=== PATIENT | male | born 1945 | race Hispanic/Latino ===

== ENCOUNTER 2018-02-16 15:31 | Emergency (ER) | payer OTHER, SELFPAY ==
--- NOTE | 2018-02-16 17:39 | RAD REPORT ---
EXAM DESCRIPTION: RAD - Forearm Right - 02/16/2018 5:25 pm CLINICAL HISTORY: Pain and swelling COMPARISON: None. FINDINGS: Arthritic changes are present about the elbow and wrist. No fracture, dislocation or aggre ssive marrow lesion. Soft tissue swelling is seen about the the medial aspect of the forearm. No radi opaque foreign body.
[2018-02-16 17:44] LABS: Absolute Lymphocytes (CBC) 1.2 K/uL (0.7-4.9); Absolute Monocytes 0.8 K/uL (0.1-1.3); Absolute Neutrophil 7.7 K/uL (1.8-8.0); Basophils % 0.6 % (0-1.3); Eosinophils % 3.3 % (0-4.4); Hematocrit 31.9 % (39.6-49.0); Lymphocytes % 11.9 % (15.3-44.8); MCH 32.3 pg (27.0-35.0); MCV 96.3 fL (80-100); MPV 10.3 fL (7.6-11.3); RBC Red Blood Cell Count 3.31 M/uL (4.33-5.43)
[2018-02-16 17:49] LABS: Protime INR 1.52
[2018-02-16 17:54] LABS: Potassium 5.4 mEq/L (3.6-5.0)
[2018-02-16 17:57] LABS: Albumin 3.7 g/dL (3.2-5.5); Bilirubin Total 0.7 mg/dL (0.3-1.2); Protein, Total 6.9 g/dL (6.0-8.3)
[2018-02-16 18:18] LABS: Urine Blood NEGATIVE (NEG); Urine Glucose NEGATIVE (NEG); Urine Protein NEGATIVE (NEG)
[2018-02-16] MEDS ORDERED: SOD POLYSTYREN SUL 15 GM/60 ML UCUP ONE (19:02)
[2018-02-16] MEDS ORDERED: VANCOMYCIN 1 GM/VIAL ONE (19:08)
[2018-02-16] MEDS ORDERED: NA CHLORIDE 0.9% 250 ML ONE (19:11)
--- NOTE | 2018-02-16 20:54 | ER ---
Nurse's Notes [facility] Name: Ventura Mitchell Age: 72 yrs Sex: Male : 1945 Arrival Date: 02/16/2018 Time: 15:32 Bed 20 Private MD: Diagnosis: Cellulitis of right upper limb-right forearm;Hyperkalemia Presentation: 02/16 15:46 Presenting complaint: Patient states: Redness and inflammation to right forearm that aj started 1 month ago. Patient was told by home health nurse to come to ER for evaluation. Transition of care: patient was not received from another setting of care. Onset of symptoms was January 15, 2018. Initial Sepsis Screen: Does the patient meet any 2 criteria? No. Patient's initial sepsis screen is negative. Does the patient have a suspected source of infection? No. Patient's initial sepsis screen is negative. Care prior to arrival: None. 15:46 Method Of Arrival: Wheelchair aj 15:46 Acuity: PETER 3 aj Triage Assessment: 15:51 General: Appears in no apparent distress. comfortable, Behavior is calm, cooperative, aj appropriate for age. Pain: Complains of pain in dorsal aspect of right forearm, right wrist and right hand. Neuro: Level of Consciousness is awake, alert, obeys commands, Oriented to person, place, time, situation, Appropriate for age. Respiratory: Airway is patent Respiratory effort is even, unlabored, Respiratory pattern is regular, symmetrical. Derm: Skin is intact, is healthy with good turgor, Skin is pink, warm \T\ dry. normal. Musculoskeletal: Reports pain in dorsal aspect of right forearm, right wrist and right hand. Historical: - Allergies: 15:48 No Known Allergies; aj - Home Meds: 15:51 terbinafine HCl 250 mg oral tab 1 tab once daily [Active]; Warfarin 8 mg Oral once aj daily [Active]; tramadol 50 mg Oral tab 1 tab every 6 hours [Active]; atorvastatin 80 mg oral tab 1 tab once daily [Active]; lisinopril 20 mg Oral tab 2 tabs once daily [Active]; gabapentin 100 mg oral cap 3 caps 3 times per day [Active]; hydrochlorothiazide 25 mg Oral tab 1 tab once daily [Active]; - PMHx: 15:48 Hypertension; Diabetes - IDDM; CHF; aj - Immunization history:: Adult Immunizations up to date. - Social history:: Smoking status: Patient uses tobacco products, smokes one pack cigarettes per day. Screenin:10 Abuse screen: Denies threats or abuse. Nutritional screening: No deficits noted. rb1 Tuberculosis screening: No symptoms or risk factors identified. Fall Risk None identified. Assessment: 16:10 General: Appears in no apparent distress. comfortable, Behavior is calm, cooperative. rb1 Neuro: Level of Consciousness is awake, alert, obeys commands, Oriented to person, place, time, situation. Cardiovascular: Capillary refill < 3 seconds is brisk in bilateral fingers. Respiratory: Airway is patent Respiratory effort is even, unlabored, Respiratory pattern is regular, symmetrical. GI: No signs and/or symptoms were reported involving the gastrointestinal system. : No signs and/or symptoms were reported regarding the genitourinary system. Derm: Skin is pink, warm \T\ dry. Musculoskeletal: Swelling present in right arm. 16:10 Derm: discoloration and swelling is noted to all five toes on the left foot. rb1 16:10 Pain: Pain: Complains of pain in right arm Pain currently is 5 out of 10 on a pain rb1 scale. 17:08 Reassessment: Patient appears in no apparent distress at this time. No changes from rb1 previously documented assessment. 18:06 Reassessment: Patient appears in no apparent distress at this time. Patient and/or rb1 family updated on plan of care and expected duration. Pain level reassessed. Patient is alert, oriented x 3, equal unlabored respirations, skin warm/dry/pink. Family at bedside. 19:19 Reassessment: Patient appears in no apparent distress at this time. Patient and/or mg2 family updated on plan of care and expected duration. Pain level reassessed. Patient is alert, oriented x 3, equal unlabored respirations, skin warm/dry/pink. 20:32 Reassessment: Patient appears in no apparent distress at this time. Patient and/or mg2 family updated on plan of care and expected duration. Pain level reassessed. Patient is alert, oriented x 3, equal unlabored respirations, skin warm/dry/pink. patient opted to go AMA. still onging IV antibiotics. Vital Signs: 15:51 BP 133 / 60; Pulse 56; Resp 19; Temp 97.6; Pulse Ox 98% on R/A; Weight 81.65 kg; Height aj 5 ft. 11 in. (180.34 cm); Pain 8/10; 16:15 BP 138 / 62; Pulse 54; Resp 18; Pulse Ox 99% on R/A; rb1 17:12 BP 135 / 63; Pulse 57; Resp 19; Pulse Ox 100% on R/A; rb1 18:10 BP 132 / 59; Pulse 61; Resp 17; Pulse Ox 98% on R/A; rb1 19:09 BP 158 / 91; Pulse 61; Resp 18; Pulse Ox 97% on R/A; mg2 19:53 BP 177 / 55; Pulse 58; Resp 18; Pulse Ox 96% ; mg2 21:36 BP 168 / 63; Pulse 61; Resp 18; Pulse Ox 95% ; Pain 0/10; mg2 15:51 Body Mass Index 25.10 (81.65 kg, 180.34 cm) aj ED Course: 15:32 Patient arrived in ED. sb2 15:47 Triage completed. aj 15:51 Arm band placed on left wrist. Patient placed in waiting room, Patient notified of wait aj time. 16:10 Patient has correct armband on for positive identification. Bed in low position. Call rb1 light in reach. Side rails up X 1. Pulse ox on. NIBP on. 16:19 Bianca Jin RN is Primary Nurse. rb1 16:20 Soy Dugan NP is PHCP. pm1 16:20 Ashu Redmond MD is Attending Physician. pm1 16:53 Missed attempt(s): 22 gauge in left antecubital area. Bleeding controlled, band aid dh3 applied, catheter tip intact. 17:05 Missed attempt(s): 24 gauge in left hand. Bleeding controlled, band aid applied, ss catheter tip intact. 17:18 Inserted saline lock: 24 gauge in left antecubital area, using aseptic technique. Blood ss collected. 17:24 X-ray completed. Portable x-ray completed in exam room. Patient tolerated procedure la2 well. 17:26 Forearm Right XRAY In Process Unspecified. EDMS 17:53 Urine collected: urinal,clear. dh3 18:58 Report given to RADHA Florian. rb1 19:08 EKG done, by ED staff, reviewed by Soy Dugan NP. mg2 19:38 IV discontinued, intact, bleeding controlled, Pressure dressing applied, left IV AC mg2 infiltrated. IV D/C and new IV inserted. 19:58 No provider procedures requiring assistance completed. mg2 21:56 IV discontinued, bleeding controlled, No redness/swelling at site. Pressure dressing mg2 applied. Administered Medications: 19:00 Drug: Kayexalate 30 grams Route: PO; rb1 20:26 Follow up: Response: No adverse reaction mg2 19:18 Drug: vancoMYCIN 1 grams Route: IVPB; Infused Over: 2 hrs; Site: left antecubital; mg2 21:50 Follow up: IV Status: Completed infusion mg2 21:57 Follow up: Response: No adverse reaction mg2 Outcome: 21:55 AMA AMA form signed mg2 21:55 Condition: stable 21:55 Discharge instructions given to patient, family, Instructed on discharge instructions, follow up and referral plans. Demonstrated understanding of instructions, follow-up care, medications, wound care, Prescriptions given X 1. 21:57 Patient left the ED. mg2 Signatures: Dispatcher [employer] EDMS Onelia Schumacher RN RN aj Smirch, Shelby, RN RN Bianca Jin RN RN rb1 Soy Dugan NP BIOINFORMATICS COMPUTER SCIENTIST pm1 Pema Orona 3 Allie Grewal2 Vangie Boles 2 Pablo Acosta RN RN mg2 Corrections: (The following items were deleted from the chart) 15:52 15:51 Arm band placed on left wrist. Patient placed in an exam room, dea 19:26 19:24 Pain: [place] [id number] 19:39 19:38 IV discontinued, mg2 mg2
--- NOTE | 2018-02-16 20:54 | EDPHYS ---
Physician Documentation [facility] Name: Ventura Mitchell Age: 72 yrs Sex: Male : 1945 Arrival Date: 02/16/2018 Time: 15:32 Bed 20 Private MD: ED Physician Ashu Redmond HPI: 02/16 17:00 This 72 yrs old Male presents to ER via Wheelchair with complaints of Right pm1 Arm Cellulitis. 17:00 The patient or guardian complains of swelling, Redness . The complaints affect the pm1 dorsal aspect of right forearm. Context: The problem was sustained at home, resulted from unknown cause. Onset: The symptoms/episode began/occurred yesterday. Treatment prior to arrival includes: no previous treatment. Modifying factors: The symptoms are alleviated by nothing. the symptoms are aggravated by nothing. Associated signs and symptoms: Pertinent negatives: decreased range of motion, deformity, fever, numbness, tingling. Severity of symptoms: in the emergency department the symptoms are unchanged. The patient has not recently seen a physician. Patient was seen by home health nurse today for chronic left foot wounds. She recommended that the patient get evaluated in the ER for the redness present to his right forearm. He has had swelling to his right forearm and hand for 1 month but the redness started yesterday. Historical: - Allergies: 15:48 No Known Allergies; aj - Home Meds: 15:51 terbinafine HCl 250 mg oral tab 1 tab once daily [Active]; Warfarin 8 mg Oral once aj daily [Active]; tramadol 50 mg Oral tab 1 tab every 6 hours [Active]; atorvastatin 80 mg oral tab 1 tab once daily [Active]; lisinopril 20 mg Oral tab 2 tabs once daily [Active]; gabapentin 100 mg oral cap 3 caps 3 times per day [Active]; hydrochlorothiazide 25 mg Oral tab 1 tab once daily [Active]; - PMHx: 15:48 Hypertension; Diabetes - IDDM; CHF; aj - Immunization history:: Adult Immunizations up to date. - Social history:: Smoking status: Patient uses tobacco products, smokes one pack cigarettes per day. ROS: 17:00 Constitutional: Negative for fever, chills, and weight loss, Eyes: Negative for injury, pm1 pain, redness, and discharge, ENT: Negative for injury, pain, and discharge, Neck: Negative for injury, pain, and swelling, Cardiovascular: Negative for chest pain, palpitations, and edema, Respiratory: Negative for shortness of breath, cough, wheezing, and pleuritic chest pain, Abdomen/GI: Negative for abdominal pain, nausea, vomiting, diarrhea, and constipation, Back: Negative for injury and pain, : Negative for injury, bleeding, discharge, and swelling. 17:00 MS/extremity: Positive for swelling, of the dorsal aspect of right forearm and right hand, Negative for injury or acute deformity, decreased range of motion, paresthesias, tingling. 17:00 Skin: Positive for swelling, redness to dorsal aspect of right forearm. Exam: 17:00 Constitutional: This is a well developed, well nourished patient who is awake, alert, pm1 and in no acute distress. Head/Face: Normocephalic, atraumatic. Neck: Trachea midline, no thyromegaly or masses palpated, and no cervical lymphadenopathy. Supple, full range of motion without nuchal rigidity, or vertebral point tenderness. No Meningismus. Chest/axilla: Normal chest wall appearance and motion. Nontender with no deformity. No lesions are appreciated. Cardiovascular: Regular rate and rhythm with a normal S1 and S2. No gallops, murmurs, or rubs. Normal PMI, no JVD. No pulse deficits. Respiratory: Lungs have equal breath sounds bilaterally, clear to auscultation and percussion. No rales, rhonchi or wheezes noted. No increased work of breathing, no retractions or nasal flaring. Abdomen/GI: Soft, non-tender, with normal bowel sounds. No distension or tympany. No guarding or rebound. No evidence of tenderness throughout. Back: No spinal tenderness. No costovertebral tenderness. Full range of motion. 17:00 Skin: Appearance: cellulitis, that is moderate, on the dorsal aspect of right forearm. 17:00 Neuro: Orientation: is normal, Mentation: is normal, Motor: moves all fours, Sensation: is normal, no obvious gross deficits. Vital Signs: 15:51 BP 133 / 60; Pulse 56; Resp 19; Temp 97.6; Pulse Ox 98% on R/A; Weight 81.65 kg; Height aj 5 ft. 11 in. (180.34 cm); Pain 8/10; 16:15 BP 138 / 62; Pulse 54; Resp 18; Pulse Ox 99% on R/A; rb1 17:12 BP 135 / 63; Pulse 57; Resp 19; Pulse Ox 100% on R/A; rb1 18:10 BP 132 / 59; Pulse 61; Resp 17; Pulse Ox 98% on R/A; rb1 19:09 BP 158 / 91; Pulse 61; Resp 18; Pulse Ox 97% on R/A; mg2 19:53 BP 177 / 55; Pulse 58; Resp 18; Pulse Ox 96% ; mg2 21:36 BP 168 / 63; Pulse 61; Resp 18; Pulse Ox 95% ; Pain 0/10; mg2 15:51 Body Mass Index 25.10 (81.65 kg, 180.34 cm) aj MDM: 16:20 Patient medically screened. pm1 20:47 Data reviewed: vital signs. Data interpreted: Pulse oximetry: on room air is 96 %. pm1 Interpretation: normal. 20:48 Refusal of service: The patient/guardian displays adequate decision making capability pm1 and despite a detailed discussion of alternatives, benefits, risks, and consequences refuses: Admission to the hospital for further work-up and treatment, Patient wants to go home because he has spent a month in the hospital recently. Patient wants to go home after infusion of IV antibiotics. present at bedside and supports his decision. 20:49 ED course: Will discharge patient home with MRSA coverage with least drug interaction pm1 with warfarin. 02/16 16:33 Order name: CMP; Complete Time: 18:07 pm1 02/16 16:33 Order name: Blood Culture Adult (2) pm1 02/16 16:33 Order name: CBC with Diff; Complete Time: 17:45 pm1 02/16 16:33 Order name: Lactate; Complete Time: 17:54 pm1 02/16 16:33 Order name: Procalcitonin; Complete Time: 18:29 pm1 02/16 16:33 Order name: PT-INR; Complete Time: 17:54 pm1 02/16 16:33 Order name: Ptt, Activated; Complete Time: 17:54 pm1 02/16 16:33 Order name: IV Saline Lock; Complete Time: 17:26 pm1 02/16 16:49 Order name: Forearm Right XRAY; Complete Time: 17:45 pm1 02/16 16:49 Order name: Urine Dipstick-Ancillary (obtain specimen); Complete Time: 17:54 pm1 02/16 17:49 Order name: Urine Dipstick--Ancillary (enter results) eb 02/16 18:55 Order name: EKG; Complete Time: 18:55 pm1 02/16 18:55 Order name: EKG - Nurse/Tech; Complete Time: 19:06 pm1 Administered Medications: 19:00 Drug: Kayexalate 30 grams Route: PO; rb1 20:26 Follow up: Response: No adverse reaction mg2 19:18 Drug: vancoMYCIN 1 grams Route: IVPB; Infused Over: 2 hrs; Site: left antecubital; mg2 21:50 Follow up: IV Status: Completed infusion mg2 21:57 Follow up: Response: No adverse reaction mg2 Disposition: 02/17 07:30 Co-signature as Attending Physician, Ashu Redmond MD. rn Disposition: 02/16/18 20:54 Patient has left against medical advice. Impression: Cellulitis of right upper limb - right forearm, Hyperkalemia. - Patients states they are going to Home. - Condition is Undetermined. - Discharge Instructions: Cellulitis, Hyperkalemia. - Prescriptions for Doxycycline Hyclate 100 mg Oral Tablet - take 1 tablet by ORAL route every 12 hours; 20 tablet. Follow up: Emergency Department; When: As needed; Reason: Worsening of condition. Follow up: Private Physician; When: 2 - 3 days; Reason: Recheck today's complaints, Continuance of care, Re-evaluation by your physician. - Problem is new. - Symptoms have improved. Signatures: Dispatcher [employer] Onelia Sherman RN RN aj Nieto, Roman, MD MD rn Barber, Rebecca, RN RN rb1 Soy Dugan, ASHLEE MARKETING OPERATIONS CONSULTANT pm1 Pablo Acosta RN RN mg2 Corrections: (The following items were deleted from the chart) 02/16 20:57 20:54 02/16/2018 20:54 Patients has left against medical advice. Impression: Cellulitis pm1 of right upper limb - right forearm. Patient states they are going to Home. Condition is Undetermined. Follow up: Emergency Department; When: As needed; Reason: Worsening of condition. Follow up: Private Physician; When: 2 - 3 days; Reason: Recheck today's complaints, Continuance of care, Re-evaluation by your physician. Problem is new. Symptoms have improved. pm1 21:57 20:57 02/16/2018 20:54 Patients has left against medical advice. Impression: Cellulitis mg2 of right upper limb - right forearm; Hyperkalemia. Patient states they are going to Home. Condition is Undetermined. Discharge Instructions: Cellulitis. Prescriptions for Doxycycline Hyclate 100 mg Oral Tablet - take 1 tablet by ORAL route every 12 hours; 20 tabletFollow up: Emergency Department; When: As needed; Reason: Worsening of condition. Follow up: Private Physician; When: 2 - 3 days; Reason: Recheck today's complaints, Continuance of care, Re-evaluation by your physician. Problem is new. Symptoms have improved. pm1
[2018-02-16 22:01] VITALS: TEMP 97.6
[2018-02-16 22:08] VITALS: BP 168/63; O2SAT 95
--- NOTE | 2018-02-17 06:55 | EKG ---
Test Date: 2018-02-16 Test Time: 19:03:17 Human Resource Advisor: MEASUREMENT RESULTS: Intervals: Rate: 61 ME: 138 QRSD: 174 QT: 486 QTc: 489 [place]: P: 65 ME: 138 QRS: 69 T: 51 INTERPRETIVE STATEMENTS: Normal sinus rhythm Right bundle branch block Inferior infarct, age undetermined Abnormal ECG Compared to ECG 12/08/2017 07:02:59 Myocardial infarct finding now present Atrial fibrillation no longer present Ventricular premature complex(es) no longer present Aberrant conduction of supraventricular beat(s) no longer present Electronically Signed On 02-17-18 06:53:44 CDT by Rickey Lucio
== END 2018-02-16 21:57 | disposition left against medical advice (07) ==
LOC: ER 15:31
DX: L03.113 Cellulitis of right upper limb (principal); E87.5 Hyperkalemia; I10 Essential (primary) hypertension; E11.9 Type 2 diabetes mellitus without complications; I50.9 Heart failure, unspecified; F17.210 Nicotine dependence, cigarettes, uncomplicated; Z79.01 Long term (current) use of anticoagulants
CPT/HCPCS: 36415; 80053; 81003; 83605; 84145; 85025; 85610; 85730; 87040; 87077; 87186; 87205; 93005; 96365; 96366; 99284

== ENCOUNTER 2019-11-04 12:07 | Emergency (ER) | payer OTHER ==
--- OUTSIDE RECORDS SUMMARY | 2019-11-04 12:09 | XMS REPORT ---
:1945 [facility] [address] [place] [address] Care Team Providers Name Role Phone Unavailable Unavailable Unavailable Problems This patient has no known problems. Allergies, Adverse Reactions, Alerts This patient has no known allergies or adverse reactions. Medications This patient has no known medications.
[2019-11-04] MEDS ORDERED: MIDAZOLAM HCL 2 MG/2 ML INJ ONE (12:21)
[2019-11-04] MEDS ORDERED: NA CHLORIDE 0.9% 1,000 ML ONE (12:21)
[2019-11-04] MEDS ORDERED: AMIODARONE HCL 150 MG/3 ML INJ IV ONE (12:26)
[2019-11-04] MEDS ORDERED: FENTANYL CITR 100 MCG/2 ML ONE (12:26)
[2019-11-04] MEDS ORDERED: MAGNESIUM SULFATE 1 gm IVPB 1 GM/100 ML BAG IV ONE (12:33)
--- NOTE | 2019-11-04 12:58 | RAD REPORT ---
EXAM DESCRIPTION: RAD - Chest Single View - 11/04/2019 12:51 pm CLINICAL HISTORY: DYSPNEA COMPARISON: Chest Single View dated 12/08/2017 TECHNIQUE: AP portable chest image was obtained 11/04/2019 12:51 pm . FINDINGS: Left lower lung field is cut off the field of view. Resuscitation paddles overlie the ches t. No peripheral mass consolidation. Interstitial markings are prominent but not substantially differ ent from comparison. Central vasculature is prominent. Mild cardiomegaly is present similar or less p rominent than comparison. No measurable pleural effusion and no pneumothorax. No acute bony abnormali ty seen. No acute aortic findings suspected. IMPRESSION: Mild failure or volume overload pattern less prominent than seen November 2017.
[2019-11-04 13:02] LABS: Protime INR 1.17
--- NOTE | 2019-11-04 13:58 | EKG ---
Test Date: 2019-11-04 Test Time: 12:18:12 Recording Clerk: VICTORIANO MEASUREMENT RESULTS: Intervals: Rate: 193 [place]: QRSD: 202 QT: 320 QTc: 573 [place]: P: [place]: QRS: -41 T: 180 INTERPRETIVE STATEMENTS: Ventricular tachycardia Abnormal ECG Compared to ECG 02/16/2018 19:03:17 Ventricular tachycardia now present Sinus rhythm no longer present Electronically Signed On 11-04-19 13:57:20 DRAFTER (CAD) ELECTRICAL by Flo Pelayo
[2019-11-04 14:24] LABS: Absolute Lymphocytes (CBC) 0.8 K/uL (0.7-4.9); Basophils % 0.9 % (0-1.3); Hematocrit 41.7 % (39.6-49.0); Lymphocytes % 5.4 % (15.3-44.8); MPV 11.8 fL (7.6-11.3); RBC Red Blood Cell Count 4.37 M/uL (4.33-5.43)
[2019-11-04 14:35] LABS: Albumin 3.5 g/dL (3.4-5.0); Bilirubin Direct 0.3 mg/dL (0-0.2); Bilirubin Total 0.8 mg/dL (0.2-1.0); Magnesium 2.2 mg/dL (1.8-2.4); Potassium 4.6 mmol/L (3.5-5.1); Protein, Total 6.2 g/dL (6.4-8.2); Troponin (Emerg Dept Use Only) 0.06 ng/mL (0.0-0.045)
[2019-11-04 14:40] LABS: Urine White Blood Cell Casts OK
[2019-11-04 14:41] LABS: Blood Morphology Comment NOT SEEN (NOT SEEN); Platelet Estimate DECR; Toxic Granulation 1+
--- NOTE | 2019-11-04 15:26 | EKG ---
Test Date: 2019-11-04 Test Time: 12:27:32 Auto Servicer: VICTORIANO MEASUREMENT RESULTS: Intervals: Rate: 80 NM: 174 QRSD: 166 QT: 406 QTc: 468 [place]: P: 58 NM: 174 QRS: 84 T: -18 INTERPRETIVE STATEMENTS: Sinus rhythm with frequent premature ventricular complexes Possible Left atrial enlargement Right bundle branch block Cannot rule out Inferior infarct, age undetermined Abnormal ECG Compared to ECG 11/04/2019 12:18:12 Right bundle-branch block now present Ventricular tachycardia no longer present Electronically Signed On 11-04-19 15:26:16 CUSTOM FRAMING SPECIALIST by Flo Pelayo
--- NOTE | 2019-11-04 15:26 | ER ---
Nurse's Notes [facility] Name: Ventura Mitchell Age: 74 yrs Sex: Male : 1945 Arrival Date: 11/04/2019 Time: 12:11 Bed 3 Private MD: Jefferson Calderon Diagnosis: Ventricular tachycardia;Acute combined systolic (congestive) and diastolic (congestive) heart failure Presentation: 11/04 12:20 Presenting complaint: Significant other states: pt was feeling bad last night, this iw morning was having chest pain and felt dizzy, had syncopal episode at home, pt arrives to ER, pale, diaphoretic , VTach on monitor, KIMANI Weiss at bedside . pt moved from ER bed 5 to ER bed 3, placed on Defib pads. Transition of care: patient was not received from another setting of care. Onset of symptoms was November 04, 2019. Risk Assessment: Do you want to hurt yourself or someone else? Patient reports no desire to harm self or others. Initial Sepsis Screen: Does the patient meet any 2 criteria? No. Patient's initial sepsis screen is negative. Does the patient have a suspected source of infection? No. Patient's initial sepsis screen is negative. Care prior to arrival: None. 12:20 Method Of Arrival: Wheelchair iw 12:20 Acuity: PETER 1 iw Triage Assessment: 12:20 General: Appears distressed, uncomfortable, Behavior is cooperative. Pain: Complains of sv pain in chest Pain currently is 10 out of 10 on a pain scale. Neuro: Level of Consciousness is awake, alert, obeys commands, Oriented to person, place, time, situation. Cardiovascular: Rhythm is ventricular tachycardia. Respiratory: Airway is patent Respiratory effort is even, unlabored, Respiratory pattern is symmetrical, tachypnea. Derm: Skin is diaphoretic, Skin is dusky. Historical: - Allergies: 12:30 No Known Allergies; iw - Home Meds: 12:30 Eliquis 5 mg oral tab 1 tab 2 times per day [Active]; hydrochlorothiazide 25 mg Oral iw tab 1 tab once daily [Active]; lisinopril 40 mg Oral tab 1 tab once daily [Active]; metformin 500 mg Oral tab 1 tab 2 times per day [Active]; - PMHx: 12:30 CHF; Diabetes - IDDM; Hypertension; iw - Immunization history:: Adult Immunizations up to date. - Ebola Screening: : Patient negative for fever greater than or equal to 101.5 degrees Fahrenheit, and additional compatible Ebola Virus Disease symptoms Patient denies exposure to infectious person Patient denies travel to an Ebola-affected area in the 21 days before illness onset No symptoms or risks identified at this time. - Social history:: Smoking status: Patient denies any tobacco usage or history of. Screenin:13 Abuse screen: Denies threats or abuse. Denies injuries from another. Nutritional sv screening: No deficits noted. Tuberculosis screening: No symptoms or risk factors identified. Fall Risk None identified. Assessment: 13:16 General: Appears in no apparent distress. comfortable, Behavior is calm, cooperative, sv appropriate for age. Pain: Denies pain. Neuro: Level of Consciousness is awake, alert, obeys commands, Oriented to person, place, time, situation, Moves all extremities. Full function Speech is normal. Cardiovascular: Patient's skin is warm and dry. Rhythm is sinus rhythm with unifocal PVCs Chest pain is denied. Respiratory: Airway is patent Respiratory effort is even, unlabored, Respiratory pattern is regular, symmetrical. Derm: Skin is pink, warm \T\ dry. 13:35 Reassessment: Inside lab at the bedside for recollect. sv 14:13 Reassessment: Dr Redmond speaking with pt and family regarding POC. sv 14:30 Reassessment: Patient appears in no apparent distress at this time. Patient and/or sv family updated on plan of care and expected duration. Pain level reassessed. Patient is alert, oriented x 3, equal unlabored respirations, skin warm/dry/pink. Patient states feeling better. Patient states symptoms have improved. 15:18 Reassessment: Transfer process to be started. sv 16:00 Reassessment: Patient appears in no apparent distress at this time. Patient and/or sv family updated on plan of care and expected duration. Pain level reassessed. Patient is alert, oriented x 3, equal unlabored respirations, skin warm/dry/pink. Patient denies pain at this time. Patient states feeling better. Patient states symptoms have improved. 16:19 Reassessment: Report given to [facility] with [facility]. sv Vital Signs: 12:22 BP 124 / 96; Pulse 193; Resp 24 S; Pulse Ox 94% on R/A; iw 12:24 BP 104 / 49; Pulse 173; Resp 23; Pulse Ox 100% ; sv 12:27 Pulse 81; Resp 16; Pulse Ox 100% ; sv 12:29 BP 134 / 61; Pulse 71; Resp 17; Pulse Ox 100% on Non-rebreather mask; sv 13:06 BP 146 / 73; Pulse 63; Resp 21; Pulse Ox 100% on Non-rebreather mask; sv 13:17 BP 139 / 56; Pulse 62; Resp 14; Pulse Ox 100% on 2 lpm NC; sv 13:54 BP 164 / 70; Pulse 69; Resp 16; Pulse Ox 100% on 2 lpm NC; sv 14:54 BP 153 / 67; Pulse 57; Resp 15; Pulse Ox 100% on 2 lpm NC; sv ED Course: 12:11 Patient arrived in ED. mr 12:11 Jefferson Calderon MD is Private Physician. mr 12:22 Initial lab(s) drawn, by mi, sent to lab. Inserted saline lock: 18 gauge in right iw antecubital area, using aseptic technique. Blood collected. 12:22 Assist provider with cardioversion (synchronized) with pads, for treatment of V tach iw with 200 joules Set up for procedure. Performed by Abhishek HARMAN Monitored with lunchroom monitor, pulse ox, Post procedure rhythm is unchanged. Patient tolerated well. 12:23 Patient has correct armband on for positive identification. Placed in gown. Bed in low sv position. Call light in reach. Side rails up X2. Adult w/ patient. alarm security or surveillance monitor on. Pulse ox on. NIBP on. 12:23 Assist provider with cardioversion for treatment of V tach with 200 joules X 1. Set up iw for procedure. Performed by Abhishek HARMAN Monitored with lunchroom monitor, pulse ox, Post procedure rhythm is unchanged. 12:29 Triage completed. iw 12:30 Arm band placed on. iw 12:31 Abhishek Rousseau PA is PHCP. jr8 12:31 Ashu Redmond MD is Attending Physician. jr8 12:31 Inserted saline lock: 20 gauge in left forearm, using aseptic technique. iw 12:32 Oxygen administration via nasal cannula. iw 12:44 Stacy Thurston, RADHA is Primary Nurse. sv 12:52 XRAY Chest (1 view) In Process Unspecified. EDMS 13:43 Lab(s) recollected, by labor crew supervisor, sent to lab. sv 13:50 Lab(s) recollected, by labor crew supervisor, sent to lab. sv 15:40 Patient transferred, IV remains in place. intact. sv 15:57 transfer transportation to receiving facility. sv Administered Medications: 12:20 Drug: Versed 2 mg Route: IVP; Site: right antecubital; sv 13:05 Follow up: Response: No adverse reaction sv 12:20 Drug: NS 0.9% 1000 ml Route: IV; Rate: 1000 ml; Site: right antecubital; sv 12:45 Follow up: Response: No adverse reaction; IV Status: Completed infusion; IV Intake: sv 1000ml 12:29 Drug: amiodarone 150 mg Volume: 100 ml; Route: IVPB; Infused Over: 10 mins; Site: right sv antecubital; 12:40 Follow up: Response: No adverse reaction; IV Status: Completed infusion; IV Intake: 50mlsv 12:33 Drug: Magnesium Sulfate 1 grams Route: IVPB; Infused Over: 1 hrs; Site: left forearm; sv 13:35 Follow up: Response: No adverse reaction; IV Status: Completed infusion; IV Intake: sv 100ml 12:45 Drug: amiodarone 900 mg, D5W 500 ml Route: IVPB; Rate: 1 mg/min; Site: right sv antecubital; 16:28 Follow up: Response: No adverse reaction; IV Status: Infusion continued upon transfer sv Intake: 12:40 IV: 50ml; Total: 50ml. sv 12:45 IV: 1000ml; Total: 1050ml. sv 13:35 IV: 100ml; Total: 1150ml. sv Outcome: 15:25 ER care complete, transfer ordered by MD. marquez 15:40 Transferred by ground EMS to [facility], Transfer form completed. sv X-rays sent w/ patient. Note: Chiqui GARCIA 15:40 Condition: stable 15:40 Instructed on the need for transfer. 16:28 Patient left the ED. sv Signatures: Dispatcher [employer] EDMS Stacy Thurston RN RN sv Rivera, Vicky Hui RN RN iw Roszak, Josh, PA PA jr8 Corrections: (The following items were deleted from the chart) 13:35 12:45 Response: No adverse reaction; IV Status: Completed infusion; IV Intake: 100ml sv sv
--- NOTE | 2019-11-04 15:26 | EDPHYS ---
Physician Documentation [facility] Name: Ventura Mitchell Age: 74 yrs Sex: Male : 1945 Arrival Date: 11/04/2019 Time: 12:11 Bed 3 Private MD: Jefferson Calderon ED Physician Ashu Redmond HPI: 11/04 13:09 This 74 yrs old Male presents to ER via Wheelchair with complaints of Chest jr8 Pain. 13:09 The patient or guardian reports chest pain that is located primarily in the substernal jr8 area. Onset: acutely, today. The pain does not radiate. Associated signs and symptoms: Pertinent positives: diaphoresis, shortness of breath. The chest pain is described as a pressure. Duration: The patient or guardian reports a single episode, that is still ongoing. Modifying factors: The symptoms are alleviated by nothing. the symptoms are aggravated by nothing. Severity of pain: At its worst the pain was moderate in the emergency department the pain is unchanged. The patient has not experienced similar symptoms in the past. The patient has not recently seen a physician. Historical: - Allergies: 12:30 No Known Allergies; iw - Home Meds: 12:30 Eliquis 5 mg oral tab 1 tab 2 times per day [Active]; hydrochlorothiazide 25 mg Oral iw tab 1 tab once daily [Active]; lisinopril 40 mg Oral tab 1 tab once daily [Active]; metformin 500 mg Oral tab 1 tab 2 times per day [Active]; - PMHx: 12:30 CHF; Diabetes - IDDM; Hypertension; iw - Immunization history:: Adult Immunizations up to date. - Ebola Screening: : Patient negative for fever greater than or equal to 101.5 degrees Fahrenheit, and additional compatible Ebola Virus Disease symptoms Patient denies exposure to infectious person Patient denies travel to an Ebola-affected area in the 21 days before illness onset No symptoms or risks identified at this time. - Social history:: Smoking status: Patient denies any tobacco usage or history of. ROS: 13:09 Eyes: Negative for injury, pain, redness, and discharge, ENT: Negative for injury, jr8 pain, and discharge, Neck: Negative for injury, pain, and swelling, Abdomen/GI: Negative for abdominal pain, nausea, vomiting, diarrhea, and constipation, Back: Negative for injury and pain, MS/Extremity: Negative for injury and deformity, Skin: Negative for injury, rash, and discoloration, Neuro: Negative for headache, weakness, numbness, tingling, and seizure. 13:09 Cardiovascular: Positive for chest pain. 13:09 Respiratory: Positive for shortness of breath. Exam: 13:09 Eyes: Pupils equal round and reactive to light, extra-ocular motions intact. Lids and jr8 lashes normal. Conjunctiva and sclera are non-icteric and not injected. Cornea within normal limits. Periorbital areas with no swelling, redness, or edema. ENT: Nares patent. No nasal discharge, no septal abnormalities noted. Tympanic membranes are normal and external auditory canals are clear. Oropharynx with no redness, swelling, or masses, exudates, or evidence of obstruction, uvula midline. Mucous membranes moist. Neck: Trachea midline, no thyromegaly or masses palpated, and no cervical lymphadenopathy. Supple, full range of motion without nuchal rigidity, or vertebral point tenderness. No Meningismus. Abdomen/GI: Soft, non-tender, with normal bowel sounds. No distension or tympany. No guarding or rebound. No evidence of tenderness throughout. Back: No spinal tenderness. No costovertebral tenderness. Full range of motion. Skin: Warm, dry with normal turgor. Normal color with no rashes, no lesions, and no evidence of cellulitis. MS/ Extremity: Pulses equal, no cyanosis. Neurovascular intact. Full, normal range of motion. Neuro: Awake and alert, GCS 15, oriented to person, place, time, and situation. Cranial nerves II-XII grossly intact. Motor strength 5/5 in all extremities. Sensory grossly intact. Cerebellar exam normal. Normal gait. 13:09 Constitutional: The patient appears alert, awake, diaphoretic, obviously ill. 13:09 Cardiovascular: Rate: tachycardic, Rhythm: irregular, Pulses: Pulses are 1+ in right radial artery and left radial artery. Heart sounds: murmur, not appreciated, Edema: is not appreciated, JVD: is not appreciated. 13:09 Respiratory: the patient does not display signs of respiratory distress, Respirations: tachypnea, Breath sounds: are clear throughout. Vital Signs: 12:22 BP 124 / 96; Pulse 193; Resp 24 S; Pulse Ox 94% on R/A; iw 12:24 BP 104 / 49; Pulse 173; Resp 23; Pulse Ox 100% ; sv 12:27 Pulse 81; Resp 16; Pulse Ox 100% ; sv 12:29 BP 134 / 61; Pulse 71; Resp 17; Pulse Ox 100% on Non-rebreather mask; sv 13:06 BP 146 / 73; Pulse 63; Resp 21; Pulse Ox 100% on Non-rebreather mask; sv 13:17 BP 139 / 56; Pulse 62; Resp 14; Pulse Ox 100% on 2 lpm NC; sv 13:54 BP 164 / 70; Pulse 69; Resp 16; Pulse Ox 100% on 2 lpm NC; sv 14:54 BP 153 / 67; Pulse 57; Resp 15; Pulse Ox 100% on 2 lpm NC; sv Procedures: 12:34 Cardioversion: (synchronized) for treatment of V tach, with 200 joules X 2. Post admissions rn rhythm is sinus rhythm, the patient tolerated the procedure well. MDM: 12:31 Patient medically screened. jr8 12:34 ED course: Patient improved after 2 cardioversion and amiodarone, reports symptoms of rn dyspnea and chest pain resolved. . 14:26 Data reviewed: vital signs, nurses notes, lab test result(s), EKG, radiologic studies, jr8 plain films. Data interpreted: Pulse oximetry: on room air is 99 %. Interpretation: normal. Counseling: I had a detailed discussion with the patient and/or guardian regarding: the historical points, exam findings, and any diagnostic results supporting the discharge/admit diagnosis, lab results, radiology results, the need to transfer to another facility. ED course: Discussed case with Dr. Alcantara and Pierce. Last Echo was 2 years ago and showed EF of around 20%. Given today's problems most likely needs ICD placement. Will transfer to main [facility] for further evaluation . 15:24 ED course: [facility] accepted patient to CCU for further evaluation and possible ICD jr8 placement . 11/04 12:32 Order name: Basic Metabolic Panel; Complete Time: 14:39 jr8 11/04 12:32 Order name: CBC with Diff; Complete Time: 14:50 jr8 11/04 12:32 Order name: LFT's; Complete Time: 14:39 jr8 11/04 12:32 Order name: Magnesium; Complete Time: 14:39 jr8 01/22 12:32 Order name: NT PRO-BNP; Complete Time: 14:39 11/04 12:32 Order name: PT-INR; Complete Time: 13:11 11/04 12:32 Order name: Troponin (emerg Dept Use Only); Complete Time: 14:39 11/04 12:32 Order name: XRAY Chest (1 view); Complete Time: 13:11 11/04 14:42 Order name: CBC Smear Scan; Complete Time: 14:50 EDMS 11/04 12:32 Order name: EKG; Complete Time: 12:32 11/04 12:32 Order name: Cardiac monitoring; Complete Time: 12:34 11/04 12:32 Order name: EKG - Nurse/Tech; Complete Time: 12:34 11/04 12:32 Order name: IV Saline Lock; Complete Time: 12:34 11/04 12:32 Order name: Labs collected and sent; Complete Time: 12:34 11/04 12:32 Order name: O2 Per Protocol; Complete Time: 12:34 11/04 12:32 Order name: O2 Sat Monitoring; Complete Time: 12:34 11/04 13:22 Order name: Labs - recollect needed: recollect cbc; Complete Time: 13:43 bd 11/04 13:25 Order name: Labs - recollect needed: recollect basic; Complete Time: 13:43 11/04 15:15 Order name: EKG Electrocardiogram; Complete Time: 16:28 EDMS Administered Medications: 12:20 Drug: Versed 2 mg Route: IVP; Site: right antecubital; sv 13:05 Follow up: Response: No adverse reaction sv 12:20 Drug: NS 0.9% 1000 ml Route: IV; Rate: 1000 ml; Site: right antecubital; sv 12:45 Follow up: Response: No adverse reaction; IV Status: Completed infusion; IV Intake: sv 1000ml 12:29 Drug: amiodarone 150 mg Volume: 100 ml; Route: IVPB; Infused Over: 10 mins; Site: right sv antecubital; 12:40 Follow up: Response: No adverse reaction; IV Status: Completed infusion; IV Intake: 50mlsv 12:33 Drug: Magnesium Sulfate 1 grams Route: IVPB; Infused Over: 1 hrs; Site: left forearm; sv 13:35 Follow up: Response: No adverse reaction; IV Status: Completed infusion; IV Intake: sv 100ml 12:45 Drug: amiodarone 900 mg, D5W 500 ml Route: IVPB; Rate: 1 mg/min; Site: right sv antecubital; 16:28 Follow up: Response: No adverse reaction; IV Status: Infusion continued upon transfer sv Disposition: 16:50 Co-signature as Attending Physician, Ashu Redmond MD. rn Disposition: 11/04/19 15:25 Transfer ordered to [facility]. Diagnosis are Ventricular tachycardia, Acute combined systolic (congestive) and diastolic (congestive) heart failure. - Reason for transfer: Higher level of care. - Accepting physician is Dr. Zepeda . - Condition is Fair. - Problem is new. - Symptoms have improved. Signatures: Dispatcher [employer] EDMS Riya Goldstein Stephanie, RN RN sv Williams, Irene, RN RN iw Nieto, Roman, MD MD rn Roszak, Josh, PA PA jr8 Corrections: (The following items were deleted from the chart) 16:28 15:25 11/04/2019 15:25 Transfer ordered to [facility]. sv Diagnosis is Ventricular tachycardia; Acute combined systolic (congestive) and diastolic (congestive) heart failure. Reason for transfer: Higher level of care. Accepting physician is Dr. Zepeda . Condition is Fair. Problem is new. Symptoms have improved. jr8
[2019-11-04 22:28] VITALS: O2SAT 100
[2019-11-04 22:36] VITALS: BP 153/67
== END 2019-11-04 16:28 | disposition short-term general hospital (02) ==
LOC: ER 12:07
PROC: 5A2204Z Restoration of Cardiac Rhythm, Single (ICD-10-PCS; principal; 2019-11-04)
DX: I47.2 Ventricular tachycardia (principal); I50.41 Acute combined systolic (congestive) and diastolic (congestive) heart failure; I10 Essential (primary) hypertension; E11.9 Type 2 diabetes mellitus without complications; Z79.01 Long term (current) use of anticoagulants
CPT/HCPCS: 93005 ×2; 85025; 80048; 36415; 83735; 85610; 80076; 84484; 83880; 71045; 99291; 99292; 92960 ×2; J0282 ×2; J2250; J3475; J7060; J7030; J3010